=== PATIENT | male | born 1985 | race Caucasian/White ===

== ENCOUNTER → 2020-05-01 08:13 | Outpatient (CLI) | payer OTHER, SELFPAY ==
--- NOTE | ~2020-05-01 | US_ITS ---
EXAMINATION: US breast BI limited HISTORY: Bilateral breast masses, history of gynecomastia TECHNIQUE: Limited bilateral subareolar breast ultrasound is performed. COMPARISON: CT, 11/09/2018 FINDINGS: There is tissue in the subareolar aspect of the breasts which has the appearance of gynecom astia. This correlates with bilateral gynecomastia seen on the comparison CT from 2019. IMPRESSION: Bilateral gynecomastia. Clinical follow-up is recommended. BI-RADS Category 2: Benign finding(s). Reviewed, dictated and finalized at location A. [employer] WORK[employer] CLERK
== END ==
PROVIDERS: PCP Emergency Medicine; Visit Provider Emergency Medicine
DX: N62 Hypertrophy of breast (principal)
CPT/HCPCS: 76642

== ENCOUNTER 2020-06-02 06:44 | Outpatient (CLI) | payer OTHER, SELFPAY ==
--- NOTE | ~2020-06-02 | MR_ITS ---
EXAMINATION: MR pituitary wo/w con DATE: 06/02/2020 08:51 INDICATION: Hyperprolactinemia. TECHNIQUE: Magnetic resonance imaging (MRI) of the brain and brainstem was performed without and with 15 mL MultiHance intravenous contrast. Whole-brain sequences included sagittal T1-weighted FSE, axia l diffusion-weighted FS EPI, axial T2*-weighted GRE, axial T2-weighted FLAIR Propeller, and axial T2- weighted Propeller. Small eeaui-mp-ppzy sequences included sagittal and coronal T1-weighted FSE cente red at the pituitary. Postcontrast sequences included small [id number]-[id number] coronal T1-weighted FSE in a time course and sagittal T1-weighted FSE and whole-brain axial T1-weighted FSE. Apparent diffusion coefficient (ADC) maps were created. COMPARISON: None. FINDINGS: The pituitary is normal in size with height of 5 mm and concave superior margin. The infund ibulum is at midline. There is no intracranial hemorrhage, acute infarction, or abnormal intracranial mass lesion. The ventricles are normal in size. The orbits are normal. The mastoid air cells are nor mal. The paranasal sinuses are clear. IMPRESSION: 1. Normal brain. Normal pituitary. Reviewed, dictated and finalized at location A. [employer]
[2020-06-02 11:24] LABS: Estimated Glomerular Filt Rate > 60
== END 2020-06-02 06:45 | disposition home or self-care (01) ==
PROVIDERS: PCP Emergency Medicine; Visit Provider Internal Medicine Endocrinology, Diabetes & Metabolism
DX: E22.1 Hyperprolactinemia (principal)
CPT/HCPCS: 70553; A9577

== ENCOUNTER → 2020-08-14 00:10 | Outpatient (CLI) | payer OTHER, SELFPAY ==
[2020-08-14 17:47] LABS: SARS-CoV-2 RNA PCR Negative
== END ==
PROVIDERS: PCP Emergency Medicine; Visit Provider Surgery
DX: Z01.812 Encounter for preprocedural laboratory examination (principal); Z20.822 Contact with and (suspected) exposure to COVID-19; N63.0 Unspecified lump in unspecified breast
CPT/HCPCS: C9803; U0003; U0005

== ENCOUNTER 2020-08-14 07:54 | Outpatient (CLI) | payer OTHER, SELFPAY | END 2020-08-14 07:55 | disposition home or self-care (01) | LOC: ANHSURGERY 07:58 | PROVIDERS: PCP Emergency Medicine; Visit Provider Surgery | DX: N63.0 Unspecified lump in unspecified breast (principal); Z01.818 Encounter for other preprocedural examination | CPT/HCPCS: 36415; 86850; 86900; 86901 ==

== ENCOUNTER 2020-08-17 01:00 | Day surgery (SDC) | payer SELFPAY ==
[2020-08-10 14:40] VITALS: BMI 29.0
[2020-08-17] VITALS (10 sets, daily range): BP systolic 120–142; BP diastolic 62–74; PULSE 73–92; RESP 10–20; TEMP 36.2–36.6; O2SAT 94–100; BMI 28.3
--- NOTE | 2020-08-17 08:05 | WPDANESEPPF ---
Anes - Initial Pre Proc Eval Procedure: Operation Date: 08/17/20 12:00 Proposed Procedures p Bilateral Subcutaneous Mastectomy - Cyrus Villatoro DO Date/Time: 08/17/20 08:05 Surgeon: Cyrus Villatoro DO Pre Op Diagnosis: bilat breast pain Patient Data Age: 35 Gender: M Height: 1.7 m Weight: 84.09 kg Allergies Allergy/AdvReac Type Severity Reaction Status Date / Time No Known Allergies Allergy Verified 08/17/20 10:08 Home Medications Medication Instructions Recorded Confirmed Type mecobalamin (vitamin B12) 1,000 1,000 mcg SUBLINGUAL DAILY 04/16/20 08/10/20 History mcg disintegrating tablet,sublingual multivitamin 1 tablet PO DAILY 04/16/20 08/10/20 History omega 8-wij-hjp-fish oil 1,000 mg 1 cap PO DAILY 04/16/20 08/10/20 History (120 mg-180 mg) capsule omeprazole 40 mg capsule,delayed 40 mg PO DAILY #30 cap 08/04/20 08/10/20 Rx release cholecalciferol (vitamin D3) 1,000 unit PO DAILY 08/10/20 08/10/20 History [Vitamin D3] magnesium 250 mg PO DAILY 08/10/20 08/10/20 History Patient hx anesthesia problems: none Family hx anesthesia problems: none PMFSH Past Medical History Medical History (Updated 08/17/20 @ 08:06 by Dereck Lynn MD) BMI 29.0-29.9,adult Duodenal ulcer Gynecomastia History of tibial fracture Hyperprolactinemia Pain of both breasts PUD (peptic ulcer disease) Stomach ulcer Surgical History Surgical History Hx of gynecomastia surgery 2013 Lower extremity surgery planned left tib fib had metal plates placed Family History Family History Father Family history of primary malignant neoplasm of liver Hypertension Mother No problems noted. Sibling No problems noted. 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 Questions were solicited and answers provided to the satisfaction of the patient/family/POA.
[2020-08-17] MEDS: LACTATED RINGERS 1,000 ML 30 ML IV CONT ×2 (10:33→14:05)
--- NOTE | 2020-08-17 11:21 | PM.IMHP ---
H&P: HPI History of Present Illness Date/Time: 08/17/20 11:21 Chief Complaint: bilateral gynectomastia Narrative: Omero Adames Jr. is a 35 year old male who presents with bilateral gynecomastia. He has hx of this about 10 years ago and underwent bilateral sq mastectomy, but he has noticed recurrent symptoms. He had a repeat u/s which showed bilateral gynecomastia. He now presents for bilateral subcutaneous mastectomy. Review of Systems Review of Systems: All systems reviewed & are unremarkable except as noted in HPI and below Constitutional: Constitutional: Denies chills, Denies fever(s), Denies headache(s) and Denies weight loss Eyes: Eyes: Denies change in vision ENT: Denies dizziness, Denies headache(s), Denies neck mass and Denies throat swelling Cardiovascular: Cardiovascular: Denies chest pain, Denies lightheadedness and Denies dyspnea Respiratory: Respiratory: Denies cough, Denies dyspnea and Denies wheezing Gastrointestinal: Gastrointestinal: Denies abdominal pain, Denies change in bowel habits, Denies nausea and Denies vomiting Genitourinary: Genitourinary: Denies hematuria and Denies dysuria Musculoskeletal: Musculoskeletal: Reports as per HPI Integumentary/Breasts: Skin/Breast: Reports as per HPI Neurologic: Denies dizziness and Denies headache(s) Allergic/Immunologic: Allergic/Immunologic: Denies throat swelling and Denies wheezing PMFSH Past Medical History Medical History BMI 29.0-29.9,adult Duodenal ulcer Gynecomastia History of tibial fracture Hyperprolactinemia Pain of both breasts PUD (peptic ulcer disease) Stomach ulcer Surgical History Surgical History Hx of gynecomastia surgery 2013 Lower extremity surgery planned left tib fib had metal plates placed Family History Family History Father Family history of primary malignant neoplasm of liver Hypertension Mother No problems noted. Sibling No problems noted. 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 Gender identity (if verbalized by the patient): Male Spiritual care concerns: No Meds Home Medications and Allergies Home Medications Medication Instructions Recorded Confirmed Type mecobalamin (vitamin B12) 1,000 1,000 mcg SUBLINGUAL DAILY 04/16/20 08/17/20 History mcg disintegrating tablet,sublingual multivitamin 1 tablet PO DAILY 04/16/20 08/17/20 History omega 5-ums-cjl-fish oil 1,000 mg 1 cap PO DAILY 04/16/20 08/17/20 History (120 mg-180 mg) capsule omeprazole 40 mg capsule,delayed 40 mg PO DAILY #30 cap 08/04/20 08/17/20 Rx release cholecalciferol (vitamin D3) 1,000 unit PO DAILY 08/10/20 08/17/20 History [Vitamin D3] magnesium 250 mg PO DAILY 08/10/20 08/17/20 History Allergies Allergy/AdvReac Type Severity Reaction Status Date / Time No Known Allergies Allergy Verified 08/17/20 10:08 Vital Signs Vital Signs - 24 hr 08/17/20 10:17 Temperature 36.2 C L Pulse Rate 73 Respiratory Rate 16 Blood Pressure 124/69 Pulse Oximetry 99 Exam Const: General: no acute distress and alert Orientation/consciousness: patient oriented x3 HENMT: Head: normocephalic and atraumatic Ears: hearing grossly normal bilaterally General nose exam: Normal nares present Mouth: Yes Normal oral and palatal mucosa present Eyes: Periorbital: periorbital findings normal Sclera: sclerae normal EOM: EOMs intact bilaterally Neck: Neck: normal visual inspection, no lymph
--- NOTE | 2020-08-17 11:24 | WPDHPUPDATE1 ---
History and Physical Update Update Date/Time: 08/17/20 11:24 History and Physical has been reviewed, including an updated exam of the patient. There are NO changes in the patient's condition. Risks, benefits, and alternatives have been discussed and questions answered. Patient agrees to proceed with procedure.
[2020-08-17] MEDS: ceFAZolin 2 GM/D5W 50 ML 2 GM/50 ML BAG IVPB (12:05)
[2020-08-17] MEDS: BUPIVACAINE/EPINEPHRINE 0.5% 30 ML VIAL INFILTRATE (12:55)
--- NOTE | 2020-08-17 13:59 | PM.PROC ---
Procedure Note - Detailed Date of procedure: 08/17/20 Pre-op diagnosis: bilat breast pain, gynecomastia Post-op diagnosis: same Procedure performed: Bilateral subcutaneous mastectomy in male Description of procedure: Procedure as well as risks, benefits, and alternatives were discussed with the patient. Written consent was obtained and placed in chart prior to procedure. Patient was brought back to surgical suite. He was placed supine on operating table. Time-out was done to confirm patient and procedure. Was then intubated by the Anesthesia Department. His chest area was prepped and draped in sterile fashion using chlorhexidine prep. 0.5% bupivacaine with epinephrine was infiltrated locally around both breasts. A marking pen was used to vidhi out the margins of the breast tissue on the skin as well as the a skin incision. I began on the left side by making a 5 cm curvilinear incision just inferior to the nipple areola complex. Electrocautery was used for hemostasis and for dissection through the subcutaneous tissue. The breast tissue was carefully lifted off of the nipple areola complex using electrocautery. I then carefully dissected a skin flap circumferentially around the breast tissue using electrocautery. I dissected to the wide margins of the breast tissue until I identified the pectoral fascia. The breast tissue was then carefully dissected off of the pectoral fascia and hemostasis was achieved along the way with electrocautery. The breast tissue was completely removed. The cavity was then inspected and hemostasis appeared adequate. The area was then irrigated with sterile saline. A 15 round Pito drain was placed through a counter incision in the lower lateral subcu flap. The deep dermis of the incision was approximated using 3 0 Vicryl simple interrupted sutures and then the skin was approximated using 4 Monocryl running subcuticular suture. The drain was secured in place using a 3 0 nylon drain stitch. I then moved to the right side by making a 5 cm curvilinear incision just inferior to the nipple areola complex. Electrocautery was used for hemostasis and for dissection through the subcutaneous tissue. The breast tissue was carefully lifted off of the nipple areola complex using electrocautery. I then carefully dissected a skin flap circumferentially around the breast tissue using electrocautery. I dissected to the wide margins of the breast tissue until I identified the pectoral fascia. The breast tissue was then carefully dissected off of the pectoral fascia and hemostasis was achieved along the way with electrocautery. The breast tissue was completely removed. The cavity was then inspected and hemostasis appeared adequate. The area was then irrigated with sterile saline. A 15 round Pito drain was placed through a counter incision in the lower lateral subcu flap. The deep dermis of the incision was approximated using 3 0 Vicryl simple interrupted sutures and then the skin was approximated using 4 Monocryl running subcuticular suture. The drain was secured in place using a 3 0 nylon drain stitch. Exofin glue was applied over both incisions and drain sponge and tape was applied around each drain. The patient was then awakened from anesthesia, extubated, and transferred to recovery. Anesthesia: GLMA and local (0.5% bupivicaine with epi) Surgeon: Cyrus Villatoro DO Estimated blood loss (mL): 20 Drains: Yes (15 Round Pito on each side) Pathology: yes Complications: No immediate complications Condition: stable Disposition: same day Findings: This is a 35-year-old man who presented with bilateral breast pain and gynecomastia. He has a history of bilateral mastectomy for gynecomastia about 10 years ago, but the patient states that shortly after this procedure he noted recurrent swelling and pain. He continues to have pain in both breasts. He had an ultrasound done which showed evidence of bilateral gynecomastia. No other signific
--- NOTE | 2020-08-17 14:04 | SUR.OPER ---
1404-BREAST TISSUE GIVEN TO MAGALYS IN LAB.
[2020-08-17] MEDS: fentaNYL CITRATE INJ (*CRX) 100 MCG/2 ML VIAL 25 MCG IV PUSH ×3 (14:27→14:43)
--- NOTE | 2020-08-17 17:20 | SUR.PHASEII ---
prior to discharge, showed pt and spouse how to empty and record drainage from barbra drains. continueed to have nausea.
== END 2020-08-17 17:10 | disposition home or self-care (01) ==
PROVIDERS: PCP Emergency Medicine; Visit Provider Surgery
PROC: (CPT 19303; principal; 2020-08-17 12:00)
DX: N62 Hypertrophy of breast (principal); N64.4 Mastodynia; K27.9 Peptic ulcer, site unspecified, unspecified as acute or chronic, without hemorrhage or perforation
CPT/HCPCS: 19300; 36415; 86850; 86900; 86901; 88305; C9803; J0690; J1100; J2250; J2405; J2704; J3010; J7120; U0003; U0005

== ENCOUNTER 2021-04-02 08:42 | Emergency (ER) | payer OTHER, SELFPAY ==
--- NOTE | 2021-04-02 08:59 | ED.ALLEREA ---
HPI - Allergic Reaction General Chief complaint: Allergic Reaction Stated complaint: rash Time Seen by Provider: 04/02/21 08:59 Source: patient Mode of arrival: ambulatory Limitations: no limitations History of Present Illness HPI narrative: mOero Adames is a 36 yo male with a PMH of low testosterone [facility] completing prescriptions of penicillin and clindamycin and now has a rash to the itchy and has hives. Patient states that he had his wisdom teeth extracted almost 3 weeks ago and initially took penicillin afterwards but felt like he was getting infection in the area and his dentist.office started him on clindamycin he was seen by the dentist afterwards who thought he was not infected but told him to go ahead and finish the prescription he took his last pill yesterday and that yesterday afternoon he was totally broken out in a rash. Related Data Home Medications Medication Instructions Recorded Confirmed mecobalamin (vitamin B12) 1,000 1,000 mcg SUBLINGUAL DAILY 04/16/20 04/02/21 mcg disintegrating tablet,sublingual multivitamin 1 tablet PO DAILY 04/16/20 04/02/21 omega 9-hxu-vju-fish oil 1,000 mg 1 cap PO DAILY 04/16/20 04/02/21 (120 mg-180 mg) capsule cholecalciferol (vitamin D3) 1,000 unit PO DAILY 08/10/20 04/02/21 [Vitamin D3] magnesium 250 mg PO DAILY 08/10/20 04/02/21 zinc 50 mg tablet 50 mg PO DAILY 10/08/20 04/02/21 Allergies Allergy/AdvReac Type Severity Reaction Status Date / Time No Known Allergies Allergy Verified 04/02/21 08:49 Review of Systems Review of Systems: CONSTITUTIONAL: Denies fever, chills, sweats. EYES: Denies visual changes, redness, discharge. ENT: Denies rhinorrhea, congestion, sore throat, otalgia. CARDIOVASCULAR: Denies chest pain, palpitations, edema. RESPIRATORY: Denies dyspnea, wheezing, cough GASTROINTESTINAL: Denies abdominal pain, nausea, vomiting, diarrhea. GENITOURINARY: Denies dysuria, hematuria, abnormal discharge SKIN: Red pruritic rash on torso and arms neck NEUROLOGIC: Denies numbness, or focal weakness. PSYCHIATRIC: Denies anxiety or depression. [facility] Past Medical History Medical History BMI 29.0-29.9,adult Duodenal ulcer Gynecomastia History of tibial fracture Hyperprolactinemia Pain of both breasts PUD (peptic ulcer disease) Stomach ulcer Surgical History Surgical History History of mastectomy 08/17/20 Bilateral subcutaneous mastectomy in male Hx of gynecomastia surgery 2013 Lower extremity surgery planned left tib fib had metal plates placed Family History Family History Father Family history of primary malignant neoplasm of liver Hypertension Mother No problems noted. Sibling No problems noted. 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 There is no relevant family history pertinent to the presenting complaint. Exam Narrative: GENERAL: This is a well-nourished, well-developed patient, in mild distress. HEAD: normocephalic, atraumatic. EYES: Sclera clear/white. Vision is grossly intact. EARS: External ears normal,. Hearing grossly intact. NOSE: External nose normal without nasal discharge, nares without redness, no rhinorrhea. THROAT: Mucous membranes mois
[2021-04-02] MEDS: diphenhydrAMINE HCl INJ 50 MG/ML VIAL 25 MG IM (09:20)
[2021-04-02] MEDS: methylPREDNISolone SOD SUCC 125 MG VIAL IM (09:20)
[2021-04-02] MEDS: FAMOTIDINE 20 MG TABLET PO (09:20)
== END 2021-04-02 09:30 | disposition home or self-care (01) ==
PROVIDERS: Emergency Provider Nurse Practitioner; PCP Emergency Medicine
DX: R21 Rash and other nonspecific skin eruption (principal); T50.905A Adverse effect of unspecified drugs, medicaments and biological substances, initial encounter
CPT/HCPCS: 96372; 99214; A9270; G0463; J1200; J2930

== ENCOUNTER 2021-07-06 13:57 | Outpatient (CLI) | payer OTHER, SELFPAY ==
[2021-07-06 14:13] LABS: Hematocrit 49.9 % (42.0-52.0); Hemoglobin 16.6 g/dL (14.0-18.0); Mean Corpuscular HGB Conc 33.3 g/dl (32-36); Mean Corpuscular Volume 93.3 fl (80-100); Mean Platelet Volume 10.7 fl (7.4-10.4); Platelet Count Result 235 k/mm3 (150-375); Red Blood Count 5.35 M/mm3 (4.6-6.20); Red Cell Distribution Width 11.6 % (11.5-14.5); White Blood Count 8.7 K/mm3 (4.5-10.0)
[2021-07-06 16:21] LABS: Alanine Aminotransferase 54 U/L (4-50); Albumin Level 4.6 g/dL (3.5-5.1); Alkaline Phosphatase 68 U/L (38-126); Anion Gap 10 mmol/L (8-16); Aspartate Amino Transferase 32 U/L (17-59); Bilirubin,Total 0.4 mg/dL (0.2-1.3); Blood Urea Nitrogen 18 mg/dL (9-20); Carbon Dioxide 25 mmol/L (22-30); Chloride 105 mmol/L (98-107); Estimated Glomerular Filt Rate > 60; Glucose 113 mg/dL (65-110); Potassium 4.4 mmol/L (3.4-5.0); Sodium 140 mmol/L (137-145)
[2021-07-09 20:37] LABS: Erythropoietin (EPO) 9.4 mIU/mL (2.6-18.5)
== END 2021-07-06 13:58 | disposition home or self-care (01) ==
PROVIDERS: PCP Emergency Medicine; Visit Provider Internal Medicine Hematology & Oncology
DX: D75.1 Secondary polycythemia (principal)
CPT/HCPCS: 36415; 80053; 82668; 85027

== ENCOUNTER 2022-01-06 10:52 | Emergency (ER) | payer OTHER, SELFPAY ==
--- NOTE | 2022-01-06 10:56 | ED.GENADULT ---
HPI - General Adult General Chief complaint: Upper Respiratory Infection Stated complaint: swollen right side glands Time Seen by Provider: 01/06/22 11:12 Mode of arrival: ambulatory Limitations: no limitations History of Present Illness HPI narrative: 36-year-old male presents with concern for swelling and tenderness to his neck and jaw area that started today. He denies any dental pain, dental problems or broken teeth. He denies nasal congestion, rhinorrhea, sore throat. He denies difficulty swallowing. He denies fever, body aches, chills, sweats. MD complaint: Gland swelling Related Data Home Medications Medication Instructions Recorded Confirmed aspirin 81 mg tablet,delayed 81 mg PO DAILY 10/11/21 10/11/21 release (Adult Low Dose Aspirin) cabergoline 0.5 mg tablet mg 01/06/22 01/06/22 Allergies Allergy/AdvReac Type Severity Reaction Status Date / Time clindamycin Allergy Mild hives Verified 10/11/21 13:32 Review of Systems Review of Systems: CONSTITUTIONAL: Denies malaise, chills, sweats, or fever. EYES: Denies visual changes, redness, or discharge. ENT: Denies rhinorrhea, congestion, sinus pain, otalgia or difficulty swallowing, sore throat. Reports swelling, tenderness to right jaw and neck area. Reports mild tenderness to the left jaw and neck area CARDIOVASCULAR: Denies chest pain, palpitations, or edema. RESPIRATORY: Denies cough or dyspnea. SKIN: Denies rash or itching. MUSCULOSKELETAL: Denies back pain, joint pain, or myalgia. NEUROLOGIC: Denies numbness, weakness, or headache. PSYCHIATRIC: Denies anxiety or depression. All systems reviewed & are unremarkable except as noted in HPI and below PMFSH Past Medical History Medical History BMI 29.0-29.9,adult Duodenal ulcer Gynecomastia History of tibial fracture Hyperprolactinemia Pain of both breasts PUD (peptic ulcer disease) Stomach ulcer Surgical History Surgical History History of mastectomy 08/17/20 Bilateral subcutaneous mastectomy in male Hx of gynecomastia surgery 2013 Lower extremity surgery planned left tib fib had metal plates placed Family History Family History (Updated 08/17/21 @ 09:55 by Deepthi Lemus) Father Family history of primary malignant neoplasm of liver Hypertension Heart attack Mother No problems noted. Sibling No problems noted. Grandparent Brain tumor Congestive heart failure Other Blood disorder Social History Social History Social History: Patient drinks one cup of coffee daily. Patient also exercises every day. 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 There is no relevant family history pertinent to the presenting complaint Exam Narrative: GENERAL: Well-appearing, well-nourished, and in no acute distress. HEAD: Normocephalic, atraumatic. EYES: PERRLA, sclera clear, and EOMI. No nystagmus. ENT: Nares clear, turbinates pink, no rhinorrhea or epistaxis. Mucous membranes moist. TM pearly arias with sharp light reflex bilaterally; no tragal tenderness. Oropharynx without erythema or lesions. Tonsils not enlarged and without exudate. Tenderness, swelling without warmth noted to the right jaw area, mild tenderness without visible or palpable swelling to the left jaw area NECK: Supple. No lymphadenopathy. No jugular venous distension, th
[2022-01-06 10:59] VITALS: BP 137/87; PULSE 78; RESP 16; O2SAT 100
== END 2022-01-06 11:30 | disposition home or self-care (01) ==
PROVIDERS: Emergency Provider Nurse Practitioner; PCP Emergency Medicine
DX: K11.20 Sialoadenitis, unspecified (principal); Z79.82 Long term (current) use of aspirin; Z90.13 Acquired absence of bilateral breasts and nipples
CPT/HCPCS: 99213; G0463